=== PATIENT | female | born 1960 | race Caucasian/White ===

== ENCOUNTER → 2023-11-05 08:16 | Outpatient (REF) | payer OTHER, SELFPAY | LOC: WDC 08:16 | PROVIDERS: ATTENDING PHYSICIAN Obstetrics & Gynecology; FAMILY PHYSICIAN Physician Assistant Medical | DX: Z12.31 Encounter for screening mammogram for malignant neoplasm of breast (principal) | CPT/HCPCS: 77063; 77067 ==

== ENCOUNTER → 2023-11-09 07:38 | Outpatient (REF) | payer OTHER, SELFPAY | LOC: RCS 07:38 | PROVIDERS: ATTENDING PHYSICIAN Internal Medicine Cardiovascular Disease; FAMILY PHYSICIAN Physician Assistant Medical | DX: R42 Dizziness and giddiness (principal); I44.0 Atrioventricular block, first degree; R94.31 Abnormal electrocardiogram [ECG] [EKG] | CPT/HCPCS: 93225; 93226 ==

== ENCOUNTER → 2023-11-20 20:13 | Outpatient (REF) | payer OTHER, SELFPAY | LOC: MRI 20:13 | PROVIDERS: ATTENDING PHYSICIAN Physician Assistant Medical | DX: R42 Dizziness and giddiness (principal); R68.89 Other general symptoms and signs; R26.89 Other abnormalities of gait and mobility | CPT/HCPCS: 70551 ==

== ENCOUNTER → 2023-11-25 18:12 | Outpatient (REF) | payer OTHER, SELFPAY | LOC: RCS 18:12 | PROVIDERS: ATTENDING PHYSICIAN Internal Medicine Cardiovascular Disease; FAMILY PHYSICIAN Physician Assistant Medical | DX: R94.31 Abnormal electrocardiogram [ECG] [EKG] (principal); I44.0 Atrioventricular block, first degree; R42 Dizziness and giddiness | CPT/HCPCS: 93306 ==

== ENCOUNTER → 2024-11-11 08:33 | Outpatient (REF) | payer OTHER, SELFPAY | LOC: WDC 08:33 | PROVIDERS: ATTENDING PHYSICIAN Physician Assistant Medical | DX: Z12.31 Encounter for screening mammogram for malignant neoplasm of breast (principal) | CPT/HCPCS: 77063; 77067 ==